=== PATIENT | female | born 1960 | race Caucasian/White ===

== ENCOUNTER → 2023-10-19 13:19 | Outpatient (REF) | payer BC, SELFPAY | LOC: RAD 13:19 | PROVIDERS: ATTENDING PHYSICIAN Registered Nurse; FAMILY PHYSICIAN Nurse Practitioner | DX: M79.89 Other specified soft tissue disorders (principal) | CPT/HCPCS: 93970 ==

== ENCOUNTER 2024-02-12 01:21 | Emergency (ER) | payer BC, SELFPAY ==
[2024-02-12 01:23] VITALS: BP 161/90
[2024-02-12 01:31] VITALS: BP 162/79
--- NOTE | 2024-02-12 01:44 | ED.GENMED ---
History of Present Illness
General
Chief Complaint: Abdominal Pain
Source: patient
Exam Limitations: none
Time Seen by Provider: 02/12/24 01:36
Nursing documentation reviewed up to this point in time: agreed with
History of Present Illness
History of Present Illness:
This is a 63-year-old woman who has history of hyperlipidemia, migraine headaches, obesity and prior history of gastritis/hiatal hernia.
She complains of abrupt onset of moderate to severe epigastric pain that began approximately 2 hours ago, persistent in nature and accompanied with nausea, 1 episode of vomiting. Epigastric abdominal pain mildly radiates to her back but she denies
chest pain, no shortness of breath, no diaphoresis, no dizziness nor lightheadedness, no palpitations.
No history of similar episodes of pain in the past.
Her daily medications include: Vytorin, propranolol, Zyrtec, Zepbound. She has lost over 40 pounds since initiation of Zepbound April 2023. Admits to a fairly healthy, low-fat diet over the past year.
She is postmenopausal.
Past History
Past History
ED Past Medical History: Hypercholesterolemia and Other (Migraine headaches, obesity, seasonal allergies, myasthenia gravis)
ED Past Surgical History: Appendectomy, Orthopedic (Right total knee replacement), Tonsilectomy and Other (Thymectomy)
Social History
Tobacco: Non-smoker
Alcohol: None
Personal: Single
Living: with family
Employment: Employed
Family History
Family History: Other (Noncontributory)
Phy Exam
Physical Exam
Physical Exam:
GENERAL: 63-year-old woman appears her stated age, awake and alert, pleasant, appears in moderate distress related to pain but easily communicative. Her daughter Kimberlyn, ED nurse is accompanying.
EYE: anicteric
NECK: Supple, nontender, no meningismus, no significant adenopathy.
ENT: oral mucosa is moist. No rhinorrhea
CARDIAC: Regular rate and rhythm. no murmur.
LUNGS: Clear breath sounds bilaterally, no acute respiratory distress, no wheezes/rales/rhonchi
ABDOMEN: Soft, nondistended, moderate tenderness epigastric as well as right upper quadrant, no r/g, no cvat. normoactive BS.
NEUROLOGICAL: Alert and oriented x3, no focal neuro deficits. Gait is steady.
SKIN: Warm and dry, normal color, skin intact. No rash.
MUSCULOSKELETAL: No C/C/E. peripheral pulses are full and equal b/l. No palpable tenderness.
PSYCH: Normal and appropriate interaction.
Course
Orders/Labs/Results
Orders:
Orders
02/12/24 01:39
ECG [Electrocardiogram (*1)] Urgent
Reason for Study: Abdominal Pain
EKG- Treatment ONCE
02/12/24 01:40
Complete Blood Count/With Diff Urgent
Comprehensive Metabolic Panel Urgent
Lipase Urgent
02/12/24 01:43
Electrocardiogram (*1) Urgent
Reason for Study: Abdominal Pain
EKG- Treatment ONCE
0.9% Sodium Chloride 1000 ml [Nss] 1,000 ml IV BOLUS
HYDROmorphone [Dilaudid] 1 mg IV NOW STA
Ondansetron Injectable [Zofran] 4 mg IV NOW STA
02/12/24 01:44
US Abdomen Complete/Upper Urgent
Comment:
Reason For Exam: acute severe epigastric RUQ pain
02/12/24 02:34
0.9% Sodium Chloride 1000 ml [Nss] 1,000 ml IV 500 mls/hr
Ketorolac [Toradol] 30 mg IV NOW STA
02/12/24 02:48
Urinalysis Reflex To Culture Urgent
Date Specimen was Collected: 02/12/24
Time Specimen was Collected: 02:46
Abnormal Lab Results
02/12/24 02/12/24
01:40 02:48
Hct 36.7 L %
(37.0-47.0)
Absolute Neuts (auto) 7.1 H 10^3/uL
(1.4-6.5)
BUN 30 H mg/dl
(7-17)
Glucose 113 H mg/dl
(70-99)
Urine Ketones Trace A
(Negative)
02/12/24 01:40
02/12/24 01:40
Vital Signs
Initial and Last Documented VS:
Initial Vital Signs
Temp Pulse Resp BP Pulse Ox
98.1 F 67 18 161/90 99
02/12/24 01:23 02/12/24 01:23 02/12/24 01:23 02/12/24 01:23 02/12/24 01:23
Last Documented Vital Signs
Temp Pulse Resp BP Pulse Ox
98.1 F 67 18 138/76 97
02/12/24 01:23 02/12/24 01:23 02/12/24 01:23 02/12/24 03:00 02/12/24 02:45
MDM/Problems Addressed
Differential Diagnosis Includes:
Acute upper abdominal pain concern for acute biliary colic, cholecystitis, pancreatitis, gastritis, small bowel obstruction, less likely ACS.
Will check labs, medicate for pain and nausea, initiate IV fluids.
Will check EKG and plan for abdominal ultrasound.
MDM/Problems Addressed:
Acute upper abdominal pain, nausea and vomiting.
Chronic conditions affecting care:
Maintained on GLP-1 agonist for weight loss along with healthy low-fat diet makes her at risk for development of cholelithiasis.
Prior abdominal surgeries makes her at risk for small bowel obstruction.
Chronic conditions affecting care: Previous abdomnial surgery
*Radiology
Radiology exam reviewed: radiology read reviewed
*Pulse Oximetry
Patient hypoxic: no
*EKG
Interpreted by ED Provider?: Yes
Interpretation: normal
Comparison EKG: no comparison EKG present
Rate: normal
Rhythm: sinus
[place]: normal axis
Interval: normal interval
QRS Pattern: normal QRS
Ischemia: no ischemia
*Machining Supervisor Interpretation
Rate: normal
Interpretation: normal
Rhythm: sinus
*Critical Care Note
Total Time (30-74mins, 75-104mins- exclusive of procedures): Not Applicable
Update Note
Update Note:
02/12/2024 0235 AM
Patient is much more comfortable after IV Dilaudid and Zofran.
Labs are reassuring, within normal limits save for mildly elevated BUN.
Ultrasound shows distended gallbladder with multiple gallstones but no convincing evidence of cholecystitis. Common bile duct is normal.
Will give an IV dose of Toradol, continue IV fluids and continue to observe.
If pain persists despite additional pain medication, must consider early acute cholecystitis thus will plan to consult surgery.
02/12/2024 0412 AM
Patient is pain-free and comfortable.
Will plan for discharge to home with instructions to maintain a strict low-fat/nonfat diet.
A prescription for a few Percocet as well as Zofran have been provided for as needed return of pain and recommend she take this with a dose of ibuprofen 600 to 800 mg. If this combination is ineffective for pain or if she has return of pain
accompanied with intractable vomiting or onset of fever, prompt return to the ED for further evaluation.
Will refer to general surgery for follow-up.
ED Attending Note
-
Portions of this chart may have been created with voice recognition software.� Occasional wrong word or��sound alike� substitutions may have occurred due to the inherent limitations of voice recognition software.
Discharge Plan
Departure
Patient Disposition: Home (Routine Discharge)
Date of Disposition: 02/12/24
Time of Disposition: 04:13
Patient with high blood pressure during this ER visit?: No
Condition: Good
Discharge Problem:
acute biliary colic, Cholelithiases
Instructions: Gallstones (DC), Low-fat diet
Prescriptions:
New
oxycodone-acetaminophen [Percocet] 5-325 mg Tablet
1 tab PO Q6HPRN PRN (Reason: pain) Qty: 8 0RF
ibuprofen 600 mg tablet
600 mg PO QID PRN (Reason: fever or pain) Qty: 20 0RF
ondansetron 4 mg tablet,disintegrating
4 mg PO QID PRN (Reason: nausea and vomiting) Qty: 20 0RF
Referrals:
Nomi Shelton MD [Active] - Call in 1-3 days for appt
Dorie Castellano CRNP [Family Provider] -
Interventions
Interventions:
*Risk Screen - Suicide Last Done: 02/12/24 01:23
*General Assessment Last Done: 02/12/24 01:23
*Neglect/Abuse Screening Last Done: 02/12/24 01:23
ED- Fall Risk Assessment Last Done: 02/12/24 01:45
*ED COVID-19 Vaccine History Last Done: 02/12/24 01:23
KZ-Pbafux-Tvjxwhdwve Assessment Last Done: 02/12/24 01:45
Discharge Date and Time
Print Language: PERSIAN
[2024-02-12 01:51] LABS: % Basophils 0.4 % (0-2); % Eosinophils 1.1 % (0-6); % Immature Granulocytes 0.2 % (0-0.5); % Lymphocytes 24.8 % (20.5-51.1); % Monocytes 6.1 % (1.7-9.3); % Neutrophils 67.4 % (42.2-75.2); Absolute Eosinophils 0.1 10^3/uL (0-0.7); Absolute Lymphocytes 2.6 10^3/uL (1.2-3.4); Absolute Monocytes 0.6 10^3/uL (0.1-0.6); Absolute Neutrophils 7.1 10^3/uL (1.4-6.5); Hematocrit 36.7 % (37.0-47.0); Hemoglobin 12.6 g/dL (12.0-16.0); Mean Corp Hgb Conc. 34.3 g/dL (33.0-37.0); Mean Corpuscular Hgb 29.2 pg (27.0-31.0); Mean Corpuscular Volume 85.2 fL (81.0-99.0); Mean Platelet Volume 9.6 fL (7.4-10.4); Nucleated Red Blood Cells % 0 %; Platelet Count 331 10^3/uL (130-400); Red Blood Cell Count 4.31 10^6/uL (4.20-5.40); Red Cell Dist. Width 12.4 % (11.5-14.5); White Blood Cell Count 10.5 10^3/uL (4.8-10.8)
[2024-02-12] MEDS: DILAUDID 1 MG IV (01:54)
[2024-02-12] MEDS: ZOFRAN 4 MG IV (01:54)
[2024-02-12] MEDS: NSS 1000 IV ×2 (01:55→02:42)
[2024-02-12 02:19] LABS: ALT (SGPT) 28 U/L (0-35); AST (SGOT) 23 U/L (14-36); Alkaline Phosphatase 64 U/L (38-126); Blood Urea Nitrogen 30 mg/dl (7-17); Calcium 10.2 mg/dl (8.4-10.2); Carbon Dioxide 25 mmol/L (22-30); Chloride 100 mmol/L (98-107); Glucose 113 mg/dl (70-99); Lipase 238 U/L (23-300); Potassium 4.1 mmol/L (3.5-5.1); Sodium 138 mmol/L (135-145); Total Bilirubin 0.6 mg/dl (0.2-1.3); Total Protein 7.3 g/dl (6.3-8.2); eGFR > 60.00
[2024-02-12] MEDS: TORADOL 30 MG IV (02:42)
[2024-02-12 02:43] VITALS: BP 153/85
[2024-02-12 03:00] VITALS: BP 138/76
[2024-02-12 03:01] LABS: Urine Albumin Negative (Neg - Trace); Urine Bilirubin Negative (Negative); Urine Character Slightly Cloudy (Clear); Urine Color Yellow; Urine Glucose Negative (Negative); Urine Ketone Trace (Negative); Urine Leukocyte Negative (Negative); Urine Nitrite Negative (Negative); Urine Occult Blood Negative (Negative); Urine Urobilinogen Negative (Neg - 1+)
[2024-02-12 04:00] VITALS: BP 131/73
== END 2024-02-12 04:43 | disposition home or self-care (01) ==
LOC: EMR 01:21
PROVIDERS: EMERGENCY PHYSICIAN Emergency Medicine; FAMILY PHYSICIAN Nurse Practitioner
DX: K80.70 Calculus of gallbladder and bile duct without cholecystitis without obstruction (principal); E78.00 Pure hypercholesterolemia, unspecified; E66.9 Obesity, unspecified; G70.00 Myasthenia gravis without (acute) exacerbation; Z87.19 Personal history of other diseases of the digestive system; Z90.49 Acquired absence of other specified parts of digestive tract
CPT/HCPCS: 99284; 76700; 80053; 81003; 83690; 85025; 93005

== ENCOUNTER → 2024-03-18 13:03 | Outpatient (REF) | payer BC, SELFPAY | LOC: WDC 13:03 | PROVIDERS: ATTENDING PHYSICIAN Hospitalist | DX: Z12.31 Encounter for screening mammogram for malignant neoplasm of breast (principal) | CPT/HCPCS: 77063; 77067 ==

== ENCOUNTER → 2024-10-01 17:26 | Outpatient (REF) | payer BC, SELFPAY | LOC: RAD 17:26 | PROVIDERS: ATTENDING PHYSICIAN Hospitalist | DX: M25.521 Pain in right elbow (principal); M79.642 Pain in left hand; M79.641 Pain in right hand | CPT/HCPCS: 73070; 73130 ==

== ENCOUNTER → 2025-03-20 13:09 | Outpatient (REF) | payer BC, SELFPAY | LOC: WDC 13:09 | PROVIDERS: ATTENDING PHYSICIAN Hospitalist | DX: Z12.31 Encounter for screening mammogram for malignant neoplasm of breast (principal) | CPT/HCPCS: 77063; 77067 ==